=== PATIENT | female | born 1960 | race Caucasian/White ===

== ENCOUNTER 2024-10-14 15:10 | Emergency (ER) | payer BC, SELFPAY ==
[2024-10-14] VITALS (8 sets, daily range): BP systolic 93–139; BP diastolic 76–110; PULSE 85–201; RESP 13–41; TEMP 36.3–36.6; O2SAT 92–99; BMI 36.0
[2024-10-14] MEDS: Adenosine 6 MG/2 ML Syringe IV (15:21)
--- NOTE | 2024-10-14 15:23 | EDS_ITS ---
HPI History of Present Illness Chief Complaint: Palpitations Detail of Chief Complaint: Tachycardia Informant: patient Narrative Narrative: Patient presents with tachycardia this around 2 PM. Patient states she had sudden onset of this. She has history of SVT this will make her third episode in about the last 3 years. Her last episode was about a year and a half ago. Patient on metoprolol. Denies recent illness. Denies chest pain. She had some mild upper back pain before this started. Denies shortness of breath or significant dizziness. She does not see a spooling operator. No significant heart history. [facility] Medical History (Updated 10/14/24 @ 16:[address] Clara Douglas, DO) Hypothyroidism Non-smoker Asthma SVT (supraventricular tachycardia) Home Medications ?Medication ?Instructions ?Recorded ?Last Taken ?Type metoprolol tartrate 50 mg tablet 50 mg PO BID #60 tabs 10/14/24 Unknown Rx Allergy/AdvReac Type Severity Reaction Status Date / Time No Known Allergies Allergy Verified 10/14/24 15:24 Social History Smoking Status: Never smoker ROS ROS ED Review of Systems ROS Unobtainable: other Constitutional Constitutional ED: Reports lethargy; Denies chills, fever(s), sweats or weight loss Eyes Eyes: Denies blurry vision, change in vision or diplopia ENT ENT ED: Denies rhinorrhea or sore throat Cardiovascular Cardiovascular: Reports racing heartbeat; Denies chest pain or orthopnea Respiratory/Chest Respiratory/Chest: Denies cough, dyspnea, dyspnea on exertion, orthopnea or sputum Gastrointestinal Gastrointestinal: Denies abdominal pain, diarrhea, nausea or vomiting Genitourinary Genitourinary ED: Denies dysuria, hematuria or urinary frequency Musculoskeletal Musculoskeletal: Denies arthralgias, back pain, myalgias or neck pain Integumentary Denies abscess, Abrasions or rash Neurologic Neurologic: Denies headache(s) or weakness Psychiatric Psychiatric: Denies anxiety, depression or suicidal thoughts Endocrine Endocrinology: Denies polydipsia, polyphagia or polyuria Hematologic/Lymphatic Hematologic/Lymphatic: Denies easy bleeding, easy bruising or lymphadenopathy Allergic/Immunologic Allergic/Immunologic ED: Denies mouth swelling, tongue swelling or urticaria EXAM Physical Exam Const Vital Signs: 10/14/24 15:12 10/14/24 15:12 10/14/24 15:21 Temperature 98 F Temperature Source Temporal Pulse Rate 199 H 201 H 185 H Respiratory Rate 20 H 41 H Respiratory Effort Blood Pressure 139/110 H Blood Pressure Mean 119 Pulse Ox 99 99 Oxygen Delivery Method Room Air Room Air 10/14/24 15:25 10/14/24 15:30 10/14/24 15:45 Temperature Temperature Source Pulse Rate 96 93 Respiratory Rate 22 H 28 H Respiratory Effort Normal Non-Labored Blood Pressure Blood Pressure Mean Pulse Ox 95 93 Oxygen Delivery Method 10/14/24 15:57 10/14/24 16:00 10/14/24 16:15 Temperature Temperature Source Pulse Rate 91 90 87 Respiratory Rate 21 H 22 H 13 Respiratory Effort Blood Pressure 93/76 116/85 H 121/81 H Blood Pressure Mean 81 95 96 Pulse Ox 92 93 94 Oxygen Delivery Method Positive well nourished and well developed General Appearance ED: well developed and NAD HEENT Reports TM's clear and moist mucous membranes normocephalic and atraumatic; Negative for trauma or tenderness Tympanic Membrane ED: Yes TM's clear Eyes PERRL and EOMs intact bilaterally General Eye ED: Negative for pale conjunctiva or scleral icterus Neck no lymphadenopathy, supple and no JVD General: Negative for tenderness Chest Wall inspection of chest normal and palpation of chest normal Chest: Negative for tenderness Resp normal respiratory effort and clear to auscultation bilaterally Effort and Inspection: Negative for respiratory distress or pain with movement Auscultation: Negative for rhonchi, wheezes or diminished lung sounds Cardio regular rhythm, S1 normal heart sound, S2 normal heart sound and no murmurs; Negative for regular rate Rate: tachycardic Peripheral Pulses: pulses 2+ throughout GI normal to inspection, nondistended, normoactive bowel sounds, soft to palpation, non-tender, non-distended and no masses Back/Spine no CVA tenderness and no thoracic nor lumbar tenderness Extremity normal to inspection General Extremety ED: Negative for edema General Extremity: Negative for edema Neuro oriented x3, CN's II-XII intact bilaterally, no sensory deficits noted and gait normal Sensorium / Orientation: awake, alert, oriented to person, oriented to place and oriented to time Motor Exam: strength 5/5 throughout and strength abnormal Psych mental status grossly normal Skin no rashes or lesions noted and no wounds MDM MDM MDM Narrative Medical decision making narrative: Patient tachycardic with heart rate over 200. On monitor looks like SVT. EKG obtained showed SVT with ventricular rate of [address] changes. Patient had an IV line established. She was given adenosine 6 mg IV and she converted to sinus tachycardia with a rate of 125. Basic labs will be ordered. CBC with differential count 10.5 with hemoglobin of 15.5 and platelet count of 264. Chemistries unremarkable other than a slightly depressed potassium at 3.1 for which I did give patient 40 mEq of potassium chloride p.o. Magnesium was 2.0. Troponin was 35. I discussed case with cardiology Dr. Heath who will present to the emergency department speak with the patient and arrange follow-up. Lab Data Attestation: I reviewed the patient's lab results. Labs: Laboratory Results - last 24 hr 10/14/24 15:25 WBC 10.5 RBC 4.98 Hgb 15.5 H Hct 45.1 MCV 90.6 MCH 31.1 MCHC 34.4 RDW Std Deviation 42.9 RDW Coeff of Adwoa 13.2 Plt Count 264 MPV 10.8 Immature Gran % (Auto) 0.400 Neut % (Auto) 65.3 Lymph % (Auto) 20.5 [place] % (Auto) 6.7 Eos % (Auto) 6.5 H Baso % (Auto) 0.6 Absolute Neuts (auto) 6.9 Absolute Lymphs (auto) 2.16 Nucleated RBC % 0 Sodium 140 Potassium 3.1 L Chloride 106 Carbon Dioxide 23.0 Anion Gap 11 BUN 18 Creatinine 1.31 H Estim Creat Clear Calc 54.18 Est GFR (MDRD) Af Amer 53 L Est GFR (MDRD) Non-Af 44 L BUN/Creatinine Ratio 13.7 Glucose 131 H Calcium 9.6 Magnesium 2.0 Troponin I High Sens 35 EKG Initial EKG: Attestation: I personally reviewed and interpreted this EKG as follows: Comments: Supraventricular tachycardia with ventricular rate of [address] changes Repeat EKG after adenosine shows sinus rhythm with rate of 96 bpm with n onspecific ST changes Discharge Plan Triage Chief Complaint: Palpitations ED Provider: Clara Douglas Dx/Rx/DC Orders Clinical Impression: SVT (supraventricular tachycardia) Instructions: ED Understanding Supraventricular Tachycardia (SVT) Prescriptions: New metoprolol tartrate 50 mg tablet 50 mg PO BID Qty: 60 0RF Primary Care Provider: August Jeronimo Referrals: Kwaku Heath MD [Med Staff - Active Staff] - Care Physician,No Primary [Non-Staff] - Activity Restrictions/Additional Instructions: Increase your metoprolol to 50 mg twice a day Print Language: Armenian Disposition Disposition: Home, Self Care
--- NOTE | 2024-10-14 15:25 | EKG12_ITS ---
Test Reason : POST ADENOSINE Blood Pressure : */* mmHG Vent. Rate : 96 BPM Atrial Rate : 96 BPM P-R Int : 150 ms QRS Dur : 82 ms QT Int : 342 ms P-R-T Axes : 31 37 42 degrees QTcB Int : 432 ms Normal sinus rhythm Nonspecific ST and T wave abnormality Abnormal ECG Confirmed by Kwaku Heath ([id number]), pictures editor JACQUES GRAHAM ([id number]) on 10/15/2024 1:08:27 PM Referred By: Confirmed By: Kwaku Heath
[2024-10-14 15:41] LABS: Absolute Lymphocyte Count 2.16 X10^3/uL (0.83-4.51); Absolute Neutrophil Count 6.9 X10^3/uL (2.0-7.7); Basophil# 0.06 X10^3/uL; Basophil% 0.6 % (0-1); Eosinophil# 0.68 X10^3/uL; Eosinophils% 6.5 % (0-5); Hematocrit 45.1 % (37-47); Hemoglobin 15.5 g/dL (12.0-15.0); Lymphocyte # 2.16 X10^3/ul (0.83-4.51); Lymphocyte % 20.5 % (19-41); Mean Corp Hgb Conc 34.4 g/dL (32-36); Mean Corpuscular Hgb 31.1 pg (27.0-32.0); Mean Corpuscular Volume 90.6 fL (81-99); Mean Platelet Vol. 10.8 fl (6.2-12.0); Monocyte# 0.71 X10^3/uL; Monocyte% 6.7 % (0-10); NRBC Flagged by Analyzer 0 % (0-5); Neutrophil # 6.89 X10^3/uL (2.7-7.7); Neutrophil % 65.3 % (47-70); Platelet Count 264 K/mm3 (150-450); RBC Distribution Width CV 13.2 % (11.6-14.6); RBC Distribution Width SD 42.9 fl (35.1-43.9); Red Blood Count 4.98 M/mm3 (4.2-5.4); White Blood Count 10.5 K/mm3 (4.4-11.0)
[2024-10-14 15:58] LABS: Anion Gap 11 (5-15); BUN 18 mg/dL (7-18); BUN/Creat Ratio 13.7 RATIO (10-20); Calcium,Total 9.6 mg/dL (8.5-10.1); Chloride 106 mmol/L (98-107); Creatinine, Serum 1.31 mg/dL (0.55-1.02); EST Glomerular Filtration Rate 44 mL/min (>60); Est Glom Filt Rate - Afr Amer 53 mL/min (>60); Estimated Creatinine Clearance 54.18 ml/min; Glucose 131 mg/dL (74-106); Potassium 3.1 mmol/L (3.5-5.1); Sodium Level 140 mmol/L (136-145); Troponin-I HS 35 pg/mL (3.0-54.0)
[2024-10-14] MEDS: Potassium Chloride Oral Tablet 20 MEQ 40 MEQ PO (16:20)
--- NOTE | 2024-10-14 16:32 | CON.PCM.CA_ITS ---
Assessment & Plan Assessment/Plan (1) SVT (supraventricular tachycardia): PLAN: Patient in the emergency department with recurrent SVT. Her last event was about 1-1/2 years ago. Prior to that it was 3 years ago and then about 20 years ago. She did have an echocardiogram in the past 2 years that was read as normal by her report. The patient is symptomatic with the SVT her heart rate is in the 190 bpm range. She converted to sinus rhythm with adenosine. She has been maintained in sinus rhythm since her conversion. Her potassium is being replaced it was 3.1 on presentation. She is on no potassium lowering medication she is actually on losartan and metoprolol at home. I would recommend she increase her metoprolol to 50 mg twice daily. I did offer for her to follow-up with us on a as needed basis in the [facility]. She should follow-up with her primary care physician and have him refer her to a twister doffer of her choice. If the patient continues to have recurrences of this SVT consideration may be given for an ablation evaluation by electrophysiology. At this point in time I would recommend continued medical care with control of her electrolytes and avoiding stimulants that could precipitate the SVT. PLAN: Plan 1. Increase metoprolol to 50 mg twice daily. 2. Follow-up with her primary care physician for further direction concerning long-term cardiovascular evaluation and consultations. 3. The [facility] will be available to answer questions are follow-up with her if she desires. 4. The patient can be discharged home from a cardiovascular standpoint. HPI Consult Data Date of Consult: 10/14/24 HPI Narrative Reason for Consultation: SVT- HPI Narrative: BEV TELLEZ, is a 63 F who presents with couple hours of palpitations. The patient's initial EKG showed SVT with some nonspecific ST-T wave changes and a heart rate of 190 bpm. She had narrow complex tachyarrhythmia. Patient had a history of a similar episode 3 years ago and another episode about a year and a half ago. The patient was treated with 6 mg adenosine and converted to sinus rhythm. She has remained in sinus rhythm blood pressures in the 120/80 range. The patient denies any syncope or near syncope reports that she does get dyspneic and some lightheadedness with activities when she is in the SVT. She had an echocardiogram done sometime in the past 2 years that she reports was normal with no significant valve disease and no structural heart disease documented. This was not done here at [facility] do not have a copy of the records. The patient has been on metoprolol 50 mg daily with losartan for blood pressure control. Her potassium was 3.1 otherwise her electrolytes were acceptable creatinine was minimally elevated at 1.3. Patient is now resting comfortably blood pressure and heart rate are stable she remains in normal sinus rhythm. The patient denies any history of chest pain or any other cardiac history. She does have a history of hypertension which is treated as well as hypothyroidism on replacement therapy. Her replacement therapy has not been changed for her hypothyroidism. She does not partake of any excessive caffeine she drinks 1 cup of coffee a day which is her usual. She has not been sick or had any type of URI or bronchitis. And she is not aware of any triggering events with this event or her previous events. The patient has been treated by her primary care physician who monitors her metoprolol. [facility] Medical History Hypothyroidism Non-smoker Asthma SVT (supraventricular tachycardia) Home Medications ?Medication ?Instructions ?Recorded ?Last Taken ?Type metoprolol tartrate 50 mg tablet 50 mg PO BID #60 tabs 10/14/24 Unknown Rx Allergy/AdvReac Type Severity Reaction Status Date / Time No Known Allergies Allergy Verified 10/14/24 15:24 Social History Smoking Status: Never smoker ROS Constitutional Constitutional: Reports as per HPI Eyes Eyes: Reports systems reviewed and no addt'l complaints, except as documented ENT HEENT: Reports systems reviewed and no addt'l complaints, except as documented Cardiovascular Cardiovascular: Reports as per HPI Respiratory/Chest Respiratory/Chest: Reports as per HPI Gastrointestinal Gastrointestinal: Reports as per HPI Genitourinary Genitourinary: Reports systems reviewed and no addt'l complaints, except as documented Musculoskeletal Musculoskeletal: Reports systems reviewed and no addt'l complaints, except as documented Integumentary Integumentary: Reports systems reviewed and no addt'l complaints, except as documented Neurologic Neurologic: Reports systems reviewed and no addt'l complaints, except as documented Psychiatric Psychiatric: Reports systems reviewed and no addt'l complaints, except as documented Endocrine Endocrinology: Reports as per HPI Hematologic/Lymphatic Hematologic/Lymphatic: Reports systems reviewed and no addt'l complaints, except as documented Allergic/Immunologic Allergic/Immunologic: Reports systems reviewed and no addt'l complaints, except as documented Physical Exam Const alert and oriented x3 HEENT normocephalic Eyes EOMs intact bilaterally Neck no JVD Carotids: Negative for bruit Chest inspection of chest normal Resp normal respiratory effort and clear to auscultation bilaterally Cardio regular rate, regular rhythm, S1 normal heart sound, S2 normal heart sound, no murmurs, no rub, no gallops and no clicks GI normal to inspection, nondistended, normoactive bowel sounds and soft to palpation Extremity no pedal edema Skin no rashes or lesions noted Neuro Neuro Narrative: Alert and oriented x 3. Psych mental status grossly normal Risk Stratification Risk Stratification Applicable: No Charges/Coding Visit Charges Inpatient E&M: 87355 Init Hosp L2 Objective Data Vital Signs: Vital Signs Temp Pulse Resp BP Pulse Ox O2 Del Method 98 F 87 13 121/81 H 94 Room Air 10/14/24 15:12 10/14/24 16:15 10/14/24 16:15 10/14/24 16:15 10/14/24 16:15 10/14/24 15:12 Oxygen Delivery Method Room Air Weight: 223 lb 5.252 oz Body Mass Index (BMI) 36.0 Lab / Micro Data Attestation: I reviewed the patient's lab results. 10/14/24 15:25 10/14/24 15:25 Labs: Laboratory Results - last 24 hr 10/14/24 15:25: WBC 10.5, RBC 4.98, Hgb 15.5 H, Hct 45.1, MCV 90.6, MCH 31.1, MCHC 34.4, RDW Std Deviation 42.9, RDW Coeff of Adwoa 13.2, Plt Count 264, MPV 10.8, Immature Gran % (Auto) 0.400, Neut % (Auto) 65.3, Lymph % (Auto) 20.5, [place] % (Auto) 6.7, Eos % (Auto) 6.5 H, Baso % (Auto) 0.6, Absolute Neuts (auto) 6.9, Absolute Lymphs (auto) 2.16, Nucleated RBC % 0, Sodium 140, Potassium 3.1 L , Chloride 106, Carbon Dioxide 23.0, Anion Gap 11, BUN 18, Creatinine 1.31 H, Estim Creat Clear Calc 54.18, Est GFR (MDRD) Af Amer 53 L, Est GFR (MDRD) Non-Af 44 L, BUN/Creatinine Ratio 13.7, Glucose 131 H, Calcium 9.6, Magnesium 2.0, Troponin I High Sens 35 Rhythm Strip Rhythm Strip: Sinus Rhythm Rate: 80 Cardiology Labs/Tests 10/14/24 15:25: WBC 10.5, RBC 4.98, Hgb 15.5 H, Hct 45.1, MCV 90.6, MCH 31.1, MCHC 34.4, Plt Count 264, MPV 10.8, Immature Gran % (Auto) 0.400, Neut % (Auto) 65.3, Lymph % (Auto) 20.5, [place] % (Auto) 6.7, Eos % (Auto) 6.5 H, Baso % (Auto) 0.6, Absolute Neuts (auto) 6.9, Nucleated RBC % 0, Sodium 140, Potassium 3.1 L, Chloride 106, Carbon Dioxide 23.0, Anion Gap 11, BUN 18, Creatinine 1.31 H, Est GFR (MDRD) Af Amer 53 L, Est GFR (MDRD) Non-Af 44 L, BUN/Creatinine Ratio 13.7, Glucose 131 H, Calcium 9.6, Magnesium 2.0 Rhythm: EKG: ECHO: Stress Test: Cardiac Cath: PCI: CT Surgery: Holter monitor: EPS: PPM: CXR: Chest CT Scan:
== END 2024-10-14 16:43 | disposition home or self-care (01) ==
PROVIDERS: Emergency Provider Emergency Medicine; Visit Provider Emergency Medicine
DX: I47.10 Supraventricular tachycardia, unspecified (principal)
CPT/HCPCS: 80048; 83735; 84484; 85025; 93005; 96374; 99284; A4216; J0153